=== PATIENT | female | born 1985 | race Caucasian/White ===

== ENCOUNTER → 2018-11-13 | Outpatient (CLI) | payer OTHER, SELFPAY ==
[2018-11-13 16:06] LABS: Absolute Lymphocyte Count 2.16 X10^3/uL (0.83-4.51); Absolute Neutrophil Count 4.7 X10^3/uL (2.0-7.7); Basophil# 0.05 X10^3/uL; Basophil% 0.6 % (0-1); Eosinophil# 0.48 X10^3/uL; Eosinophils% 6.1 % (0-5); Hematocrit 39.8 % (37-47); Lymphocyte # 2.16 X10^3/ul (4.0); Lymphocyte % 27.3 % (19-41); Mean Corp Hgb Conc 32.7 g/dL (32-36); Mean Corpuscular Hgb 31.6 pg (27.0-32.0); Mean Corpuscular Volume 96.6 fL (81-99); Mean Platelet Vol. 10.2 fl (6.2-12.0); Monocyte% 6.3 % (0-10); NRBC Flagged by Analyzer 0 % (0-5); Neutrophil # 4.71 X10^3/uL (2.7-7.7); Neutrophil % 59.4 % (47-70); Platelet Count 287 K/mm3 (150-450); RBC Distribution Width CV 11.9 % (11.6-14.6); RBC Distribution Width SD 42.3 fl (35.1-43.9); Red Blood Count 4.12 M/mm3 (4.2-5.4); White Blood Count 7.9 K/mm3 (4.4-11.0)
[2018-11-13 16:17] LABS: D-Dimer Quantitative (DVT/PE) < 0.27 FEU/ug/m (0.27-0.49)
[2018-11-13 17:11] LABS: ALB/GLOB Ratio 0.9 RATIO (0.9-2.4); AST(SGOT) 20 U/L (15-37); Alanine Aminotransfer ALT/SGPT 26 U/L (13-56); Albumin, Serum 3.5 g/dL (3.2-5.0); Alkaline Phosphatase 58 U/L (45-117); Anion Gap 6 (5-15); BUN 11 mg/dL (7-18); BUN/Creat Ratio 14.6 RATIO (10-20); Calcium,Total 8.8 mg/dL (8.5-10.1); Chloride 109 mmol/L (98-107); Creatinine, Serum 0.75 mg/dL (0.55-1.02); EST Glomerular Filtration Rate 95 mL/min (>60); Est Glom Filt Rate - Afr Amer 115 mL/min (>60); Globulin 3.7 g/dL (2.2-4.2); Glucose 79 mg/dL (74-106); Potassium 4.4 mmol/L (3.5-5.1); Protein, Total 7.2 g/dL (6.4-8.2); Sodium Level 142 mmol/L (136-145); Thyroid Stim Hormone (TSH) 0.53 uIU/mL (0.358-3.74)
== END | disposition home or self-care (01) ==
LOC: LABSPEC 15:46
PROVIDERS: Referring Provider Nurse Practitioner; Visit Provider Nurse Practitioner
DX: R06.02 Shortness of breath (principal)
CPT/HCPCS: 71046; 80053; 84443; 85025; 85379

== ENCOUNTER 2020-07-10 15:07 | Emergency (ER) | payer BC, SELFPAY ==
[2020-07-10 15:08] VITALS: BP 115/65; PULSE 90; RESP 14; TEMP 36.8; O2SAT 100; BMI 28.1
--- NOTE | 2020-07-10 15:15 | ED.VIS.LOWEX ---
HPI History of Present Illness Chief Complaint: Lower Extremity Injury Narrative Narrative: 34-year-old female presenting with right proximal calf pain. She states this started today. She states that she wore jeans last night and thought it may bunched up on her leg. The pain is increased over the course the day. She has no history of trauma. She has no history of DVT/PE. She states that she is on oral control. She has no numbness or tingling. She complains of erythema and swelling at the proximal calf posterior laterally. Patient denies chest pain, palpitations, shortness of breath. [facility] Medical History Ovarian cyst Home Medications Norgestimate-Ethinyl Estradiol [Sprintec] 1 ea PO DAILY 11/21/13 [History Last Taken Unknown] omeprazole 20 mg PO DAILY 07/10/20 [History Last Taken Unknown] Allergy/AdvReac Type Severity Reaction Status Date / Time No Known Allergies Allergy Verified 07/10/20 15:07 Social History Smoking Status: Current every day smoker ROS ROS ED Constitutional Constitutional ED: Denies chills, fever(s) or sweats Eyes Eyes: Denies blurry vision or change in vision ENT ENT ED: Denies ear pain, rhinorrhea or sore throat Cardiovascular Cardiovascular: Denies chest pain, palpitations or racing heartbeat Respiratory/Chest Respiratory/Chest: Denies cough, dyspnea or sputum Gastrointestinal Gastrointestinal: Denies abdominal pain, constipation, diarrhea or vomiting Genitourinary Genitourinary ED: Denies dysuria, hematuria or urinary frequency Musculoskeletal Musculoskeletal: Reports myalgias and other Details: Right leg erythema and swelling at lateral aspect of proximal calf. ; Denies arthralgias or neck pain Integumentary Reports rash and other Details: Erythema and swelling approximately 3 cm of proximal calf posterior laterally. ; Denies abscess or Abrasions Neurologic Neurologic: Denies headache(s), paresthesias or weakness Psychiatric Psychiatric: Denies anxiety, depression, suicidal ideation or suicidal thoughts Endocrine Endocrinology: Denies polydipsia or polyuria EXAM Physical Exam Const Vital Signs: 07/10/20 15:08 Temperature 98.3 F Temperature Source Temporal Pulse Rate 90 Respiratory Rate 14 Blood Pressure 115/65 Blood Pressure Mean 81 Pulse Ox 100 Oxygen Delivery Method Room Air General Appearance ED: Negative for pallor HEENT Reports normocephalic, head/scalp atraumatic and moist mucous membranes Eyes PERRL and EOMs intact bilaterally Neck no lymphadenopathy and supple Chest Wall inspection of chest normal and palpation of chest normal Resp normal respiratory effort and clear to auscultation bilaterally Auscultation: Negative for rales, rhonchi or wheezes Cardio regular rate and regular rhythm GI normal to inspection, nondistended, normoactive bowel sounds and non-distended Auscultation: normoactive bowel sounds Palpation: soft Narrative: Deferred Back/Spine no CVA tenderness General Back: Negative for CVA tenderness Cervical Spine: Negative for cervical spine tenderness Extremity normal to inspection General Extremety ED: Yes tenderness General Extremity: other findings Other Details: Erythema and swelling of the right posterior proximal calf. Right lower extremity neurovascular intact with prescription filled all 5 toes. DP/PT +2/4 and symmetric bilaterally. Neuro oriented x3 and CN's II-XII intact bilaterally Sensorium / Orientation: alert Motor Exam: strength 5/5 throughout Psych mental status grossly normal Attitude: No agitated Skin no rashes or lesions noted and no wounds General Skin Exam: Negative for jaundice or pallor MDM MDM MDM Narrative Medical decision making narrative: 34-year-old female presenting with right posterior leg swelling which started this morning. She thought it was due to her jeans being bunched up on her leg. She denies any systemic signs or symptoms. She does not have any history of DVT. She is on control. Unfortunately there is no DVT study available in the ED at this time. We did discuss possibly anticoagulating her overnight however she declines. Patient will follow up tomorrow for outpatient DVT study. I was informed that the ultrasound department will contact her but she was also counseled to call them at 9:00 and given the phone number for them. She is counseled to return for any new or worsening symptoms. Impression: 1. Right leg swelling Discharge Plan Triage Chief Complaint: Lower Extremity Injury ED Provider: Caleb García Dx/Rx/DC Orders Instructions: ED Peripheral Edema, Unilateral Prescriptions: No Action Norgestimate-Ethinyl Estradiol [Sprintec] 1 EACH tablet 1 ea PO DAILY RF: 0 omeprazole 20 mg capsule,delayed release(DR/EC) 20 mg PO DAILY RF: 0 Primary Care Provider: Fatoumata Mahoney NP Referrals: Fatoumata Mahoney NP, [facility] [Primary Care Provider] - Disposition Disposition: Home, self care
== END 2020-07-10 16:15 | disposition home or self-care (01) ==
PROVIDERS: Emergency Provider Student in an Organized Health Care Education/Training Program; PCP Nurse Practitioner
DX: M79.89 Other specified soft tissue disorders (principal); F17.200 Nicotine dependence, unspecified, uncomplicated; Z79.899 Other long term (current) drug therapy
CPT/HCPCS: 99282

== ENCOUNTER → 2020-07-13 11:28 | Outpatient (CLI) | payer BC, SELFPAY ==
[2020-07-10 15:08] VITALS: BMI 28.1
--- NOTE | 2020-07-13 11:31 | VDLE_ITS ---
Reason For Study: RLE pain RIGHT GSV is normal. CFV is compressible, spontaneous, phasic, competent and demonstrates normal augmentation. FV is compressible, spontaneous, phasic, competent and demonstrates normal augmentation. POP V is compressible, spontaneous, phasic, competent and demonstrates normal augmentation. T/P Trunk is compressible. PTV is compressible. RT PerV is compressible. Varicosities on posterior-lateral knee and proximal calf area are noncompressible. Procedure This is a venous duplex using B-mode, color flow and spectral Doppler. A preliminary report was called and/or faxed to Brady at [facility] @ 11:55 am. VL/Venous Duplex US, Unilateral Interpretation Summary There is no evidence of right lower extremity deep vein thrombosis. Right great saphenous vein appears patent and compressible segmentally. Superficial thrombophlebitis varic osities posterior lateral knee and proximal calf area right lower extremity Ordering Physician: Fatoumata Mahoney Referring Physician: Fatoumata Mahoney Performed By: Kierra Bower, GAR[place], RVT
[2020-07-13 13:27] LABS: M R Staph aureus DNA By PCR Negative (Negative); Probe Check PASS; Specimen Processing Control PASS
== END ==
PROVIDERS: PCP Nurse Practitioner; Referring Provider Nurse Practitioner; Visit Provider Nurse Practitioner
DX: M79.604 Pain in right leg (principal)
CPT/HCPCS: 87641; 93971

== ENCOUNTER → 2024-05-15 | Outpatient (CLI) | payer BC, SELFPAY ==
--- NOTE | 2024-05-15 14:20 | US_ITS ---
PROCEDURE: BI-RADS category: 2 REASON FOR EXAM: Palpable lump in the left breast. COMPARISON: Comparison is made with prior mammogram done earlier in the day. TECHNIQUE: Targeted left breast ultrasound. FINDINGS: LEFT: Ultrasound targeted to the upper aspect of the left breast. The palpable lump corresponds to a 2.1 cm x 2.3 cm x 1.4 cm cyst at the 12 o'clock position of the breast at 8 cm from the nipple. US/Breast Limited Unilateral IMPRESSION: The palpable lump corresponds to a 2.1 cm x 2.3 cm x 1.4 cm cyst at the 12 o'cl ock position of the breast at 8 cm from the nipple. BI-RADS 2: BENIGN. RECOMMEND ANNUAL MAMMOGRAPHIC SCREENING. Reading Location: [facility]
--- NOTE | 2024-05-15 14:20 | BI_ITS ---
PROCEDURE: DIAG MAMM W/CAD, BILAT REASON FOR EXAM: MASS OF LEFT BREAST COMPARISON: Baseline TECHNIQUE: Bilateral screening digital breast tomosynthesis with C-View and 2D FFDM. Computer aided detection. FINDINGS: The breasts are extremely dense which lowers the sensitivity of mammography. There is a 2.5 cm x 1.5 cm well-defined nodule in the upper lateral aspect of the. There is also evidence of a 1.8 cm x 1.2 cm well-defined nodule in the upper medial aspect of the right breast. Correlation with ultrasound is recommended. BI/DIAG MAMM W/CAD, BILAT IMPRESSION: Bilateral breast nodules as described. Sonographic follow-up recommended. BI-RADS category: 0 The patient will be notified of the results by letter. Reading Location: [id number]
--- NOTE | 2024-05-15 15:07 | US_ITS ---
PROCEDURE: BREAST LIMITED UNILATERAL REASON FOR EXAM: ABNORMAL MAMMOGRAM TECHNIQUE: Targeted right breast ultrasound. COMPARISON: Comparison is made with prior mammogram done earlier in the day. FINDINGS: RIGHT: Right breast ultrasound was targeted to the upper lateral aspect.. There is a 1.6 cm x 0.9 cm x 0.7 cm cyst at the 10 o'clock position of the breast at 7 cm from the nipple. There is also evidence of a similar-appearing cyst measuring 1.9 cm x 1.9 cm x 1 cm at the 9 o'clock position of the breast at 8 cm from the nipple. There is a 1 cm x 1.2 cm x 0.4 cm cystic nodule in the 9 o'clock position of the breast at 7 cm from the nipple. US/Breast Limited Unilateral IMPRESSION: Multiple cysts. BI-RADS category: 2 Reading Location: [id number]
== END | disposition home or self-care (01) ==
LOC: OPBI 14:16
PROVIDERS: Referring Provider Obstetrics & Gynecology; Visit Provider Obstetrics & Gynecology
DX: N63.25 Unspecified lump in the left breast, overlapping quadrants (principal); R92.8 Other abnormal and inconclusive findings on diagnostic imaging of breast
CPT/HCPCS: 76642; 77062; 77066; G0279